=== PATIENT | female | born 1940 | race Caucasian/White ===

== ENCOUNTER 2017-10-04 09:32 | Inpatient (IN) | payer MEDICARE, OTHER ==
[~2017-10-04] VITALS: Ht 165.1 cm; Wt 68.4 kg
[~2017-10-04 09:32] MED LIST: ASPI325T6 PO; ASPIRIN 81M81 MG/TA2 PO; COLACE 100100 MG/CAP PO; DULCOLAX S10 MG/SUPP RC; FLEXERIL5 MG PO; GOOD NEIGH1200 MG/15 PO; HYZAAR 50-12.1 UDTAB PO; LEVOXYL0.025 MG PO; LUTEIN20 M1 PO; MULTI VITAMINS1 TAB PO; NORCO 325 MG-51 TAB PO; NORVASC 5MG5 MG/TAB PO; OYSCO 500500 M1 PO; ROXICODONE 55 MG/TAB PO; SENOKOT S 50 MG1 TAB PO; TOPROL XL 50MG50 MG PO; VITAMINC500CH PO; VITAMINE200 PO; ZOCOR 20MG20 MG PO; [UNRECOGNIZED DRUG - OTHER] PO
[2017-10-04 15:54] VITALS: BP 116/65; PULSE 93; TEMP 98.4
[2017-10-04 18:00] VITALS: BP 116/65; PULSE 93; TEMP 98.4
[2017-10-05 05:15] VITALS: BP 117/63; PULSE 95; TEMP 97.4
[2017-10-05 15:20] VITALS: BP 103/62; PULSE 93; TEMP 98
[2017-10-06 06:30] VITALS: BP 133/78; PULSE 95; TEMP 99
[2017-10-06 15:28] VITALS: BP 107/59; PULSE 87; TEMP 98.1
[2017-10-07 05:13] VITALS: BP 117/70; PULSE 96; TEMP 98.8
[2017-10-07 06:43] LABS: BASO % 0.7 % (0.0-2.0); EOS # 0.2 (0.0-0.7); EOS % 3.4 % (0-4.0); GRAN # 3.4 (1.4-6.5); GRAN % 60.8 % (42.2-75.2); LYMPH # 1.2 (1.2-3.4); MEAN CELL VOLUME 90 fl (80.0-100.0); MEAN CORPUSCULAR HGB CONC 34 g/dl (33.0-37.0); MEAN PLATELET VOLUME 8.9 fl (7.4-10.4); MONO # 0.7 (0.1-0.6); MONO % 12.7 % (1.7-9.3); PLATELET COUNT 291 K/mm3 (130-400); RED BLOOD COUNT 3.24 M/mm3 (4.10-5.30); REDCELL DISTRIBUTION WIDTH-CV 13.4 % (11.5-14.5)
[2017-10-07 06:46] LABS: HEMATOCRIT 29.2 % (37.0-47.0); MEAN CORPUSCULAR HEMOGLOBIN 31 pg (27.0-31.0)
[2017-10-07 07:08] LABS: CALCIUM 8.3 mg/dL (8.4-10.2); CREATININE, serum 0.71 mg/dL (0.52-1.25); POTASSIUM 3.7 mmol/L (3.4-5.0)
[2017-10-07 15:41] VITALS: BP 109/66; PULSE 94; TEMP 98
[2017-10-08 06:30] VITALS: BP 120/69; PULSE 96; TEMP 99.8
[2017-10-08 12:00] VITALS: TEMP 98
[2017-10-08 17:49] VITALS: BP 114/69; PULSE 91; TEMP 98.2
[2017-10-09 05:46] VITALS: BP 134/72; PULSE 90; TEMP 98.6
[2017-10-09 16:13] VITALS: BP 109/62; PULSE 91; TEMP 97.6
[2017-10-10 05:14] VITALS: BP 138/67; PULSE 90; TEMP 99.5
[2017-10-10 07:40] VITALS: TEMP 98
[2017-10-10 16:02] VITALS: BP 114/65; PULSE 86; TEMP 97.8
[2017-10-11 06:00] VITALS: BP 119/70; PULSE 90; TEMP 98.2
[2017-10-11 17:29] VITALS: BP 105/63; PULSE 81; TEMP 98.1
[2017-10-12 06:00] VITALS: BP 117/59; PULSE 57; TEMP 98.9
[2017-10-12 15:02] VITALS: BP 119/64; PULSE 86; TEMP 98
[2017-10-13 06:00] VITALS: BP 125/76; PULSE 88; TEMP 97.9
[2017-10-13 15:43] VITALS: BP 118/65; PULSE 88; TEMP 98.6
[2017-10-14 06:00] VITALS: BP 123/67; PULSE 85; TEMP 98.1
[2017-10-14 15:05] VITALS: BP 109/61; PULSE 91; TEMP 98.5
[2017-10-15 06:00] VITALS: BP 128/67; PULSE 93; TEMP 98.8
[2017-10-15 16:28] VITALS: BP 117/66; PULSE 90; TEMP 97.8
[2017-10-16 06:00] VITALS: BP 130/69; PULSE 84; TEMP 98.7
[2017-10-16] MEDS ORDERED: FLEXERIL5 MG PO (12:19)
[2017-10-16] MEDS ORDERED: TYLENOL 325MG325 MG PO (12:20)
== END 2017-10-16 16:15 | disposition home or self-care (01) | DRG 560 ==
PROVIDERS: Family Medicine
DX: S72.001D Fracture of unspecified part of neck of right femur, subsequent encounter for closed fracture with routine healing (principal); E87.1 Hypo-osmolality and hyponatremia; W18.30XD Fall on same level, unspecified, subsequent encounter; I10 Essential (primary) hypertension; Z87.891 Personal history of nicotine dependence; E87.6 Hypokalemia
CPT/HCPCS: 99222-AI; 99232-AI; 99239

== ENCOUNTER 2018-01-17 10:15 | Outpatient (RCR) | payer MEDICARE, OTHER ==
[~2018-01-17 10:15] MED LIST changes: +TYLENOL 325MG325 MG PO
== END 2018-01-17 15:14 | disposition home or self-care (01) ==
LOC: WSPT 10:15
DX: S72.091D Other fracture of head and neck of right femur, subsequent encounter for closed fracture with routine healing (principal); W19.XXXD Unspecified fall, subsequent encounter; Z79.82 Long term (current) use of aspirin; Z79.899 Other long term (current) drug therapy
CPT/HCPCS: G8978-GP; G8979-GP; G8980-GP